=== PATIENT | male | born 1990 | race Two or more races ===

== ENCOUNTER 2017-12-22 18:37 | Emergency (ER) | payer SELFPAY ==
[~2017-12-22] VITALS: Ht 172.7 cm; Wt 74.8 kg
--- NOTE | 2017-12-22 18:45 | NUR ---
PATIENT IS NOT IN WAITING ROOM. UNABLE TO TRIAGE AT THIS TIME. WILL TRY AGAIN LATER.
--- NOTE | 2017-12-22 18:55 | NUR ---
CALLED PATIENT AGAIN, PATIENT IS NOT IN WAITING ROOM. UNABLE TO TRIAGE AT THIS TIME. WILL TRY AGAIN LATER.
--- NOTE | 2017-12-22 19:35 | NUR ---
pt bb self frome home c/c pressure like abd pain 12/26 since 10am. unable to urinate.last time able to urinate 9am. pt states unable to urinated s/p nose surgery at 10am. pt is aaox4. resp even and unlabored. no s/s of acute distress noted. vss. skin wnl. -n/v/d. pt safety and comfort measures in place. gauri royal bedside with pt.
[2017-12-22 20:28] LABS: APPEARANCE,URINE Clear (CLEAR); BILIRUBIN,URINE Negative (NEGATIVE); BLOOD, URINE Moderate Ery/uL (NEGATIVE); COLOR,URINE Yellow (YELLOW); KETONES,URINE Negative (NEGATIVE); LEUKOCYTE ESTERASE ,URINE Negative (NEGATIVE); NITRITE, URINE Negative (NEGATIVE); PROTEIN,URINE Negative (NEGATIVE); UGLUCOSE Negative (NEGATIVE); UROBILINOGEN,URINE 0.2 EU/dL (0.2)
--- NOTE | 2017-12-22 20:31 | NUR ---
Patient discharged to home in stable condition. Written and verbal after care instructions given. Patient verbalizes understanding of instruction. VSS upon discgharge.
[2017-12-22 20:32] VITALS: BP 141/78
[2017-12-22 21:06] LABS: BACTERIA,URINE Rare /HPF (None Seen); MUCUS,URINE Few /LPF (None Seen); SQUAMOUS EPITHELIAL CELL,UR Rare /HPF (None Seen); URINE AMORPHOUS URATE Few /HPF (None Seen); WBC,URINE 0-2 /HPF (0-3)
== END 2017-12-22 20:34 | disposition home or self-care (01) ==
LOC: ER 18:39
DX: R33.9 Retention of urine, unspecified (principal); J95.89 Other postprocedural complications and disorders of respiratory system, not elsewhere classified; Z98.890 Other specified postprocedural states
CPT/HCPCS: 81000-TC; A4606; A6403; Z7610